=== PATIENT | female | born 1985 | race Native Hawaiian/Other Pacific Islander ===

== ENCOUNTER 2017-01-05 20:43 | Emergency (ER) | payer OTHER ==
[~2017-01-05] VITALS: Ht 165.1 cm; Wt 68.5 kg
[2017-01-05] MEDS ORDERED: BUSPIRONE10 MG PO (21:13)
[2017-01-05] MEDS ORDERED: VENLAFAXINE225 MG PO (21:13)
[2017-01-05] MEDS ORDERED: CIPRO500 MG PO (21:14)
[2017-01-05] MEDS ORDERED: GABA300C2 PO (21:14)
[2017-01-05 23:28] VITALS: BP 137/85; TEMP 99
== END 2017-01-05 23:28 | disposition home or self-care (01) ==
LOC: ED 20:43
DX: N39.0 Urinary tract infection, site not specified (principal); N76.0 Acute vaginitis
CPT/HCPCS: 81000; 87590; 96372; 99284; J1885

== ENCOUNTER 2018-03-22 09:47 | Outpatient (CLI) | payer OTHER ==
[~2018-03-22 09:47] MED LIST: BUSPIRONE10 MG PO; CIPRO500 MG PO; GABA300C2 PO; VENLAFAXINE225 MG PO
== END 2018-03-22 20:14 | disposition home or self-care (01) ==
LOC: RAD 09:47
DX: Z01.818 Encounter for other preprocedural examination (principal)

== ENCOUNTER 2020-10-16 11:37 | Emergency (ER) | payer OTHER ==
[~2020-10-16] VITALS: Ht 165.1 cm; Wt 66.2 kg
[2020-10-16 14:37] VITALS: BP 115/84; TEMP 97
== END 2020-10-16 14:37 | disposition home or self-care (01) ==
LOC: ED 11:37
DX: S20.219A Contusion of unspecified front wall of thorax, initial encounter (principal); S13.4XXA Sprain of ligaments of cervical spine, initial encounter; V89.2XXA Person injured in unspecified motor-vehicle accident, traffic, initial encounter; Y92.89 Other specified places as the place of occurrence of the external cause
CPT/HCPCS: 96372; 99283; J1885

== ENCOUNTER 2020-11-25 14:15 | Emergency (ER) | payer OTHER ==
[~2020-11-25] VITALS: Ht 167.6 cm; Wt 68.5 kg
[2020-11-25 14:29] VITALS: BP 107/75; TEMP 99
== END 2020-11-25 16:30 | disposition home or self-care (01) ==
LOC: ED 14:15
DX: S93.402A Sprain of unspecified ligament of left ankle, initial encounter (principal); S83.92XA Sprain of unspecified site of left knee, initial encounter; Y03.0XXA Assault by being hit or run over by motor vehicle, initial encounter; Y92.89 Other specified places as the place of occurrence of the external cause
CPT/HCPCS: 96372; 99283; J1885; J2360

== ENCOUNTER 2020-11-27 06:32 | Emergency (ER) | payer OTHER ==
[~2020-11-27] VITALS: Ht 167.6 cm; Wt 70.3 kg
[2020-11-27 06:44] VITALS: TEMP 99
[2020-11-27 07:30] VITALS: BP 112/74
== END 2020-11-27 14:05 ==
LOC: ED 06:32
DX: M79.18 Myalgia, other site (principal); M54.2 Cervicalgia; M54.89 Other dorsalgia; V58.0XXA Driver of pick-up truck or van injured in noncollision transport accident in nontraffic accident, initial encounter; Y92.410 Unspecified street and highway as the place of occurrence of the external cause
CPT/HCPCS: 99283